=== PATIENT | male | born 1995 | race Caucasian/White ===

== ENCOUNTER 2018-11-23 16:25 | Inpatient (IN) | payer MEDICAID ==
[~2018-11-23] VITALS: Ht 182.9 cm; Wt 64.0 kg
[2018-11-23 19:48] VITALS: BP 132/67
[2018-11-23] MEDS ORDERED: HALOPERIDOL 5 MG TABLET PO PRN (20:00)
[2018-11-23] MEDS ORDERED: TRAZ-219 PO (20:18)
[2018-11-23] MEDS ORDERED: BUSP15 PO (20:18)
[2018-11-23] MEDS ORDERED: LITH300C3 PO (20:18)
[2018-11-23] MEDS ORDERED: MAG HYDROX/AL HYDROX/SIMETH ES 30 ML SUSPENSION UDCUP PO PRN (20:30)
[2018-11-23] MEDS ORDERED: ONDANSETRON HCL 4 MG TABLET PO PRN (20:30)
[2018-11-23] MEDS ORDERED: PETROLATUM,WHITE 71 GM JELLY TP PRN (20:30)
[2018-11-23] MEDS ORDERED: MAGNESIUM HYDROXIDE SUSPENSION 30 ML UDCUP PO PRN (20:30)
[2018-11-23] MEDS ORDERED: DOCUSATE SODIUM 100 MG CAPSULE PO PRN (20:30)
[2018-11-23] MEDS ORDERED: GuaiFENesin/D-METHORPHAN [SUGAR-FREE] 200-20MG/10 ML SYRUP UDCUP PO PRN (20:30)
[2018-11-23] MEDS ORDERED: LOPERAMIDE HCL 2 MG CAPSULE PO PRN (20:30)
[2018-11-23] MEDS ORDERED: IBUPROFEN 400 MG TABLET PO PRN (20:30)
[2018-11-23] MEDS ORDERED: ALBUTEROL SULFATE HFA 90 MCG/PUFF 8 GM INHALER IH PRN (20:30)
[2018-11-23] MEDS ORDERED: CloNIDine HCL 0.1 MG TABLET PO PRN (20:30)
[2018-11-23] MEDS ORDERED: ACETAMINOPHEN 325 MG TABLET PO PRN (20:30)
[2018-11-23] MEDS ORDERED: NICOTINE 14 MG/24 HOUR PATCH TD PRN (20:30)
[2018-11-23 20:37] VITALS: BP 139/76
[2018-11-23] MEDS: LORazepam 2 MG TABLET PO PRN (21:23)
[2018-11-23] MEDS: ZOLPIDEM TARTRATE 10 MG TABLET PO PRN (21:23)
[2018-11-24 06:15] VITALS: BP 125/79
[2018-11-24 07:04] LABS: BASOPHILS % (AUTO) 0.3 % (0.0-2.0); EOSINOPHILS % (AUTO) 1.8 % (1.0-6.0); HEMOGLOBIN 16.5 g/dL (13.5-17.5); LYMPHOCYTES % (AUTO) 31.2 % (22.0-44.0); MEAN CORPUSCULAR HEMOGLOBIN 29.8 pg (26.0-34.0); MEAN CORPUSCULAR HGB CONC 33.7 G/dL (31.0-37.0); MEAN CORPUSCULAR VOLUME 89 fL (80-100); MONOCYTES # (AUTO) 0.7 K/uL (0.1-1.0); MONOCYTES % (AUTO) 10.2 % (2.0-9.0); NEUTROPHILS # (AUTO) 3.6 K/uL (1.8-7.7); NEUTROPHILS % (AUTO) 56.5 % (40.0-70.0); PLATELET COUNT (AUTO) 221 K/uL (150-450); RED BLOOD CELL COUNT(AUTO) 5.53 MIL/uL (4.50-5.90); RED CELL DISTRIBUTION WIDTH 13.6 % (11.5-14.5)
[2018-11-24 08:03] LABS: ALANINE AMINOTRANSFERASE 27 U/L (12-78); ALBUMIN 4.3 g/dL (3.4-5.0); ALKALINE PHOSPHATASE 57 U/L (46-116); ANION GAP 11 mmol/L (8-16); ASPARTATE AMINOTRANSFERASE 19 U/L (15-37); BILIRUBIN,TOTAL 0.8 mg/dL (0.1-1.0); CALCIUM, TOTAL 9.5 mg/dL (8.8-10.5); CARBON DIOXIDE 28 mmol/L (22-29); CHLORIDE 102 mmol/L (98-107); CHOL/HDL RATIO 2.8 (4.2-7.3); CHOLESTEROL 202 mg/dL (131-200); CREATININE 1.06 mg/dL (0.60-1.30); FREE T4 (FREE THYROXINE) 1.18 ng/dL (0.76-1.46); GLOMERULAR FILTR. RATE CALC > 60 mL/min (>60); GLUCOSE,RANDOM 81 mg/dL (70-110); HDL CHOLESTEROL 72 mg/dL (40-60); LDL CHOL (CALC.) 115 mg/dL (0-130); POTASSIUM 4.4 mmol/L (3.5-5.1); SODIUM SERUM 141 mmol/L (136-145); THYROID STIMULATING HORMONE 0.57 uIU/mL (0.36-3.74); TOTAL PROTEIN, SERUM 7.3 g/dL (6.4-8.2); TRIGLYCERIDES 74 mg/dL (15-150); UREA NITROGEN, BLOOD 17 mg/dL (7-18)
[2018-11-24 08:24] VITALS: BP 133/70
[2018-11-24 09:03] LABS: HEMOGLOBIN A1C 5.5 % (4.5-6.2)
[2018-11-24 16:18] VITALS: BP 138/75
[2018-11-24] MEDS: LITHIUM CARBONATE 300 MG CAPSULE PO SCH (16:51)
[2018-11-24] MEDS: LORazepam 2 MG TABLET PO PRN (16:52)
[2018-11-24] MEDS: BusPIRone HCL 15 MG TABLET PO SCH (16:52)
[2018-11-24] MEDS: TraZODone HCL 50 MG TABLET PO SCH (21:02)
[2018-11-24] MEDS: ZOLPIDEM TARTRATE 10 MG TABLET PO PRN (22:46)
[2018-11-25 06:09] VITALS: BP 103/67
[2018-11-25] MEDS: LITHIUM CARBONATE 300 MG CAPSULE PO SCH ×2 (08:16→16:06)
[2018-11-25] MEDS: BusPIRone HCL 15 MG TABLET PO SCH ×2 (08:16→16:06)
[2018-11-25 08:24] VITALS: BP 140/83
[2018-11-25 16:00] VITALS: BP 137/82
[2018-11-25] MEDS: LORazepam 2 MG TABLET PO PRN ×2 (16:06→22:03)
[2018-11-25] MEDS: TraZODone HCL 50 MG TABLET PO SCH (20:34)
[2018-11-25] MEDS: ZOLPIDEM TARTRATE 10 MG TABLET PO PRN (22:03)
[2018-11-26 05:33] VITALS: BP 132/79
[2018-11-26 07:54] VITALS: BP 141/87
[2018-11-26] MEDS: LITHIUM CARBONATE 300 MG CAPSULE PO SCH (08:20)
[2018-11-26] MEDS: LORazepam 2 MG TABLET PO PRN (08:20)
[2018-11-26] MEDS: BusPIRone HCL 15 MG TABLET PO SCH (08:20)
[2018-11-26 10:12] VITALS: BP 141/87
[2018-11-26 16:00] VITALS: BP 122/78
== END 2018-11-26 17:40 | disposition home or self-care (01) | DRG 750 ==
LOC: B3A 20:00
PROVIDERS: ADMIT Psychiatry & Neurology Psychiatry; ATTEND Psychiatry & Neurology Psychiatry
DX: F25.9 Schizoaffective disorder, unspecified (principal); E78.5 Hyperlipidemia, unspecified; K59.00 Constipation, unspecified; F10.10 Alcohol abuse, uncomplicated; F12.10 Cannabis abuse, uncomplicated; Z71.41 Alcohol abuse counseling and surveillance of alcoholic; Z71.51 Drug abuse counseling and surveillance of drug abuser; Z81.8 Family history of other mental and behavioral disorders
CPT/HCPCS: 83036; 84439; 84443; 90686